=== PATIENT | male | born 1995 | race Two or more races ===

== ENCOUNTER 2016-07-04 14:56 | Emergency (ER) | payer SELFPAY ==
[~2016-07-04] VITALS: Ht 157.5 cm; Wt 80.0 kg
[2016-07-04] MEDS ORDERED: HYDROCODONE/ACETAMINOPHEN 5/325MG TABLET PO ONE (17:30)
[2016-07-04 17:50] VITALS: BP 120/80
== END 2016-07-04 18:47 | disposition home or self-care (01) ==
LOC: ER 14:56
DX: S42.402A Unspecified fracture of lower end of left humerus, initial encounter for closed fracture (principal); Z87.891 Personal history of nicotine dependence; W19.XXXA Unspecified fall, initial encounter; Y93.89 Activity, other specified; Y92.89 Other specified places as the place of occurrence of the external cause; Y99.8 Other external cause status
CPT/HCPCS: 29105; 73070; 99284